=== PATIENT | male | born 1955 | race Caucasian/White ===

== ENCOUNTER 2019-06-06 18:00 | Outpatient (CLI) | payer BC | END 2019-06-06 18:01 | disposition home or self-care (01) | LOC: SLEEPLAB 18:00 | PROVIDERS: ATTEND Internal Medicine Critical Care Medicine | DX: G47.33 Obstructive sleep apnea (adult) (pediatric) (principal); R53.83 Other fatigue; E66.9 Obesity, unspecified; R06.83 Snoring; F41.9 Anxiety disorder, unspecified; J44.9 Chronic obstructive pulmonary disease, unspecified; I50.9 Heart failure, unspecified; R09.02 Hypoxemia | CPT/HCPCS: 95806 ==